=== PATIENT | male | born 1980 ===

== ENCOUNTER → 2025-02-06 | Outpatient (CLI) | payer BC ==
[~2025-02-06] MED LIST: CEPH500 PO; DEPAKOTE; DIVA500EC; HYDACE10B PO; HYDACE5 PO; NAPR500 PO; OMEP20ER PO; PROM25 PO; RXNAPNA550 PO
== END | disposition home or self-care (01) ==
LOC: LAB 17:24 → LAB SHORT 17:24
DX: L89.893 Pressure ulcer of other site, stage 3 (principal)
CPT/HCPCS: 87070; 87205